=== PATIENT | female | born 1975 | race Caucasian/White ===

== ENCOUNTER → 2022-09-27 09:56 | Outpatient (BNVA) | payer OTHER, SELFPAY | PROVIDERS: PCP Physician Assistant; Visit Provider Physician Assistant Surgical ==

== ENCOUNTER → 2022-10-04 08:11 | Outpatient (BNVA) | payer OTHER, SELFPAY | PROVIDERS: PCP Physician Assistant; Visit Provider Surgery ==

== ENCOUNTER 2022-10-11 08:34 | Outpatient (REF) | payer OTHER, SELFPAY ==
--- NOTE | ~2022-10-11 | XR_ITS ---
EXAMINATION: XR CHEST CLINICAL INFORMATION: Bariatric service evaluation; E66.01. COMPARISON: None available. TECHNIQUE: 2 views of the chest were obtained. FINDINGS: The lungs are clear. The heart is normal in size. The vascularity is normal. The costophrenic sulci are well-defined. There are low lung volumes. No atelectasis. The hilar and mediastinal contours are unremarkable. No acute bony abnormality. XR/XR chest 2V IMPRESSION: Unremarkable examination.
--- NOTE | 2022-10-11 08:44 | ECG_ITS ---
Test Reason : e66.01 Blood Pressure : / mmHG Vent. Rate : 071 BPM Atrial Rate : 071 BPM P-R Int : 158 ms QRS Dur : 088 ms QT Int : 406 ms P-R-T Axes : 017 -47 028 degrees QTc Int : 441 ms Normal sinus rhythm Left axis deviation Cannot rule out Inferior infarct (masked by fascicular block?) , age undetermined Abnormal ECG No previous ECGs available Referred By: Lucas Rosario Electronically Signed By:NALDO STEEN
[2022-10-11 09:00] LABS: MANUAL DIFF FLAG NO
[2022-10-11 09:19] LABS: Basophils Percent Auto 0.3 % (0-2); Eosinophils Absolute Auto 0.1 X10*3/uL (0.0-0.4); Hemoglobin 16.3 g/dl (12.0-16.0); Imm Gran Abs Auto 0.03 X10*3/uL (0.00-0.03); Imm Gran Pct Auto 0.4 % (0.0-0.4); Lymphocytes Absolute Auto 1.7 X10*3/uL (1.2-4.9); Lymphocytes Percent Auto 24.5 % (20-40); Mean Corpuscular Volume 82.3 fL (80.0-98.0); Mean Platelet Volume 9.6 fL (9.4-12.3); Monocytes Absolute Auto 0.5 X10*3/uL (0.1-1.2); Monocytes Percent Auto 7.2 % (2-11); Neutrophils Absolute Auto 4.7 x10*3/uL (2.0-8.3); Neutrophils Percent Auto 65.6 % (45-73); Platelet Count 221 X10*3/uL (160-400); Red Blood Count 5.83 X10*6/uL (4.20-5.50); Red Cell Distribution Width 12.3 % (11.0-16.0); White Blood Count 7.1 X10*3/uL (4.8-10.8)
[2022-10-11 09:26] LABS: Estimated Average Glucose 243 mg/dL; Hemoglobin A1c % 10.1 %
[2022-10-11 09:54] LABS: Alanine Aminotransferase 16 U/L (0-31); Albumin Level 4.1 g/dL (3.5-5.0); Alkaline Phosphatase 95 U/L (39-117); Anion Gap 15 (12-20); Aspartate Amino Transferase 16 U/L (5-31); Bilirubin Total 0.8 mg/dL (0.0-1.0); Blood Urea Nitrogen 12 mg/dL (9-16); C Reactive Protein 2.23 mg/dL (< or = 0.50); Calcium 9.1 mg/dL (8.4-10.2); Carbon Dioxide 26 mmol/L (22-29); Chloride 106 mmol/L (96-108); Cholesterol 262 mg/dL; Estimated Glomerular Filt Rate > 60; Glucose Random 282 mg/dL (60-115); HDL Cholesterol 49 mg/dL; Iron 84 mcg/dL (30-160); LDL Cholesterol Calculated 190 mg/dl; Percent Iron Saturation 24 % (15-50); Potassium 4.1 mmol/L (3.3-5.1); Sodium 143 mmol/L (135-145); Total Iron Binding Capacity 346 mcg/dL (228-428); Total Protein 6.8 g/dL (6.5-8.0); Triglycerides 118 mg/dL; Unsaturated Iron Binding 262 ug/dL
[2022-10-11 10:26] LABS: Ferritin 40 ng/mL (10-250); Folate 13.4 ng/mL (> or = 4.0); Insulin 6 uU/mL (2-29); Vitamin B12 756 pg/mL (200-900); Vitamin D 25-OH Total 81.7 ng/mL (>30)
[2022-10-14 15:29] LABS: Calcium (PTHI) 8.9 mg/dL (8.6-10.2); PTHI 26 pg/mL (16-77)
[2022-10-16 05:18] LABS: Zinc 93 mcg/dL (60-130)
[2022-10-17 10:38] LABS: Vitamin A 40 mcg/dL (38-98)
[2022-10-17 16:33] LABS: Vitamin B1 12 nmol/L (8-30)
== END 2022-10-11 08:35 | disposition home or self-care (01) ==
LOC: HO.XRAY 08:34
PROVIDERS: PCP Physician Assistant; Visit Provider Surgery
DX: E66.01 Morbid (severe) obesity due to excess calories (principal); E11.9 Type 2 diabetes mellitus without complications; E78.5 Hyperlipidemia, unspecified; J45.909 Unspecified asthma, uncomplicated; Z79.4 Long term (current) use of insulin
CPT/HCPCS: 36415; 71046; 80053; 80061; 82306; 82607; 82728; 82746; 83036; 83525; 83540; 83970; 84425; 84443; 84590; 84630; 85025; 86140; 93005

== ENCOUNTER 2022-10-25 08:40 | Outpatient (REF) | payer OTHER, SELFPAY ==
[2022-10-27 11:28] LABS: H Pylori Breath Test Negative (Negative)
== END 2022-10-25 08:41 | disposition home or self-care (01) ==
LOC: HO.LNP 08:40
PROVIDERS: Surgery; PCP Physician Assistant; Visit Provider Physician Assistant Surgical
DX: E66.01 Morbid (severe) obesity due to excess calories (principal); E11.9 Type 2 diabetes mellitus without complications; E78.5 Hyperlipidemia, unspecified; J45.909 Unspecified asthma, uncomplicated; Z11.0 Encounter for screening for intestinal infectious diseases; Z79.4 Long term (current) use of insulin
CPT/HCPCS: 83013; 99211

== ENCOUNTER → 2022-10-28 08:00 | Outpatient (BNVA) | payer OTHER, SELFPAY | PROVIDERS: PCP Physician Assistant; Visit Provider Surgery | DX: K21.9 Gastro-esophageal reflux disease without esophagitis (principal); R11.0 Nausea ==

== ENCOUNTER → 2022-11-06 08:43 | Outpatient (BNVA) | payer OTHER, SELFPAY | PROVIDERS: PCP Physician Assistant; Visit Provider Dietitian, Registered | DX: E66.01 Morbid (severe) obesity due to excess calories (principal); E11.9 Type 2 diabetes mellitus without complications; Z79.4 Long term (current) use of insulin | CPT/HCPCS: 97802 ==

== ENCOUNTER → 2022-11-08 09:07 | Outpatient (REF) | payer OTHER, SELFPAY ==
--- NOTE | 2022-11-08 09:09 | CA_ITS ---
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 There is mildly increased left ventricular wall thickness. The visually estimated ejection fraction is between 65-70%. - Normal right ventricular cavity size and systolic function. Findings Procedure Information Contrast agent, definity, is being given per protocol without apparent complications. Left Ventricle Normal left ventricular size and systolic function. There is mildly increased left ventricular wall thickness. The visually estimated ejection fraction is between 65-70%. There is no evidence of regional wall motion abnormalities. Diastolic function is normal for age. Right Ventricle Normal right ventricular cavity size and systolic function. Atria The left atrium is normal in size. The right atrium is normal in size. Aortic Valve There is a normal trileaflet aortic valve. There is mild calcification of the aortic valve. There is no aortic valve stenosis. There is no aortic valve regurgitation. Mitral Valve Normal mitral valve structure and function. There is no mitral valve regurgitation. There is no mitral valve stenosis. Pulmonic Valve Normal pulmonic valve structure and function. There is no pulmonic valve regurgitation. Tricuspid Valve Normal tricuspid valve structure and function. There is no tricuspid valve regurgitation. Tricuspid regurgitation envelope is inadequate for calculation of right ventricular systolic pressure. Normal right atrial pressure. Great Vessels All visible segments of the aorta are normal in size. The visualized portions of the pulmonary artery and branches are normal. Venous The inferior vena cava is normal in size and collapses greater than 50% with inspiration. Pericardium/Pleural There is no evidence of pericardial effusion. Prior Study Comparison No prior study available for comparison. Measurements 2D Linear Measurements IVSd: 1.14 0.6-0.9/0.6-1.0 cm LVIDd: 4.96 3.9-5.3/4.2-5.9 cm LVIDd Index: 2.56 2.4-3.2/2.2-3.1 cm/m2 LVIDs: 3.82 2.0-3.6 cm LVPWd: 0.91 0.7-1.1 cm LA Diam: 3.80 2.7-3.8/3.0-4.0 cm LAIDs Index: 1.96 1.5-2.3 cm/m2 LV Mass: 230.89 67-162/88-224 g LV Mass Index: 119.01 43-95/49-115 g/m2 LVOT Diam: 2.00 3.0+(-)1.3 cm 2D Systolic Function EF 4C: 76.50 >55% EF 2C: 73.10 >55% EF BiP: 73.70 >55% Mitral Valve MV Pk E: 0.95 MV PK A: 0.72 MV Decel Time: 151.00 E/A: 1.30 E'Lateral: 6.20 E'Medial: 7.29 E/E' Med: 13.00 E/E' Lat: 15.30 PHT: 44.00 MVA PHT: 5.00 Decel Stutsman: 6.25 Aortic Valve AoV Pk Herber: 1.82 AoV Pk Grad: 13.00 RANJEET: 1.69 LVOT LVOT Pk Herber: 0.98 LVOT Mn Herber: 0.70 LVOT VTI: 0.19 LVOT Pk Grad: 4.00 LVOT Mn Grad: 2.00 LVOT Diam: 2.00 LVOT Area: 3.14 Diastolic Function MV Pk E: 0.95 MV Pk A: 0.72 E/A: 1.30 E'Medial: 7.29 E/E' Med: 13.00 E' Laterial: 6.20 E/E' Lat: 15.30 Right Ventricle TAPSE (mm): 17.10 TVS' Herber: 11.60 Tricuspid Valve RA Press: 3.00 Great Vessels Aorta Sinus of Valsalva: 2.70 2.0-3.5 cm Ao Asc: 3.00 2.1-3.4 cm Pulmonary Veins Pulm Vein S/D 1.50 Pulmonary Valve PV Pk Herber: 1.27 Peak PV Grad: 6.00 Updated in Other Vendor System with Status of Final Lázaro Polanco MD electronically signed on 11/10/2022 5:01:27 PM with status of Final
== END ==
LOC: HO.CARD 09:07
PROVIDERS: PCP Physician Assistant; Visit Provider Surgery
DX: R94.31 Abnormal electrocardiogram [ECG] [EKG] (principal)
CPT/HCPCS: 93306; Q9957

== ENCOUNTER → 2022-11-13 12:30 | Outpatient (BNVA) | payer OTHER, SELFPAY | PROVIDERS: PCP Physician Assistant; Visit Provider Counselor Mental Health ==

== ENCOUNTER → 2022-11-27 08:05 | Outpatient (BNVA) | payer OTHER, SELFPAY | PROVIDERS: PCP Physician Assistant; Visit Provider Surgery ==

== ENCOUNTER → 2022-11-28 09:23 | Outpatient (REF) | payer OTHER, SELFPAY ==
--- NOTE | ~2022-11-28 | NM_ITS ---
Exercise Myocardial perfusion study Indication: Abnormal stress test evaluate for myocardial ischemia Technique: The patient was brought in for an exercise perfusion study on 11/28/2022. Patient performed exercise as per Jeffery protocol and was injected 35 mCi of sestamibi was given intravenously one target HR was achieved. Images were obtained using the SPECT gamma camera interlaced with the gating device. Images were obtained in supine position. Resting perfusion study was performed on 12/04/2022. Patient was administered 35 mCi of sestamibi intravenously at rest. Images were then obtained in supine position. Images obtained with and without CT attenuation. Total DLP 130 mGy-cm. Images were processed with the software and compared side to side in short axis, horizontal long axis and vertical long axis views. Findings: The stress perfusion study showed non attenuated images show normal uptake of radiotracer in all segments of LV myocardium. Suggestion of left ventricle hypertrophy. Attenuation corrected images show minimally reduced uptake in the apical portion of the septum.. The gated study shows normal LV systolic function with calculated LVEF of 68%. LV cavity is normal in in size. The gated study shows normal systolic wall thickening and contraction of all segments. There is no transient ischemic dilation. Resting study shows nontender images show mildly reduced uptake in the basal and mid inferolateral wall of the LV myocardium. Remainder of the LV myocardium is normally perfused. Gating at rest reveals normal systolic wall motion with ejection fraction at 73%. The findings are consistent with likely normal myocardial perfusion. NM/NM cardiolite stress test Impression: 1. Normal myocardial perfusion 2. Gated LVEF is 68% 3. Transient ischemic dilatation not present Stress EKG is negative for ischemia
--- NOTE | 2022-11-28 09:26 | CA_ITS ---
Acquisition Time: 2022-11-28 09:35:21 Total Exercise Time: 00:06:06 Test Indications: Abnormal ECG Medications: SEE H Protocol: JOE Max HR: 157 BPM 91% of Pred: 172 BPM Max BP: 186/066 mmHG Max Work Load: 7.1 [address] Exercise stress terst exercise 6 min 6 sec of Joe protocol achieving 91% MPHR METS 7.1, wilth mild SOB, without chest discomfort, without arrhythmias, with normotensive response to exercise, without EKG changes. Nuclear images pending. Test reviewed with Dr. Polanco. Referred By: Richy Wild Overread By: HEMAL FERNANDEZ
== END ==
LOC: HO.CARD 09:23
PROVIDERS: PCP Physician Assistant; Visit Provider Physician Assistant Surgical
DX: R94.31 Abnormal electrocardiogram [ECG] [EKG] (principal)
CPT/HCPCS: 78452; 93017; A9500

== ENCOUNTER 2022-12-02 08:25 | Outpatient (REF) | payer OTHER, SELFPAY ==
--- NOTE | ~2022-12-02 | US_ITS ---
EXAMINATION: US COMPLETE ABDOMEN WITH LIVER ELASTOGRAPHY CLINICAL INFORMATION: Obesity COMPARISON: None available. TECHNIQUE: Real-time imaging of the abdominal viscera. Noninvasive ultrasound liver fibrosis assessment is performed using Lexie ElastPQ point quantification shear wave elastography (2D-SWE) with a C5-2 MHz transducer. Multiple elastography samples are obtained. FINDINGS: PANCREAS: Normal. ABDOMINAL AORTA: The proximal, middle, and distal aortic segments are normal in caliber. INFERIOR VENA CAVA: Visualized portions are normal. LIVER: Liver echotexture is slightly increased. The liver is normal in size and contour. There is a 3.1 x 2.4 x 3.8 cm hyperechoic lesion in the central liver, question representing a hemangioma. No other focal liver lesion. No biliary duct dilatation. The right lobe measures 16 cm in length. The left lobe measures 11 cm in length. Portal flow is normal/hepatopedal Shear wave liver elastography median stiffness is 2 m/s (reference: normal median stiffness is 1.3 m/s or less). IQR/median stiffness to assess sampling precision is 0.1 (reference: good quality data set is IQR/median stiffness of 0.15 or less). GALLBLADDER: Normal. The gallbladder is physiologically distended without evidence of stones, sludge, polyps, wall thickening or pericholecystic fluid. COMMON BILE DUCT: Normal in caliber measuring 0.5 cm in diameter. RIGHT KIDNEY: May be mild fullness of the renal pelvis. No hydronephrosis. No renal calculi or focal parenchymal lesions. The kidney measures 12.5 cm in maximum dimension. LEFT KIDNEY: Normal. No hydronephrosis. No renal calculi or focal parenchymal lesions. The kidney measures 12 cm in maximum dimension. SPLEEN: Normal. The spleen measures 11 cm in maximum dimension. FREE FLUID: None. US/US abdomen comp w elastography IMPRESSION: 1. Impression: Echogenic liver probably representing fatty infiltration. 3.1 x 2.4 x 3.8 cm hyperechoic lesion in the central right lobe of the liver. This may represent a hemangioma. Follow-up liver MRI commended. 2. Liver elastography: Adequate liver sampling. Increased liver stiffness suggestive of compensated advanced chronic liver disease but need further test for confirmation. REFERENCE: Society of Radiologists in Ultrasound Liver Stiffness Thresholds (2020): LIVER STIFFNESS THRESHOLDS: *Liver Stiffness equal or less than 1.3 m/s: High probability of being normal. *Liver Stiffness less than 1.7 m/s: In the absence of other known clinical signs, rules out compensated advanced chronic liver disease. *Liver Stiffness 1.7-2.1 m/s: Suggestive of compensated advanced chronic liver disease but need further test for confirmation. *Liver Stiffness over 2.1 m/s: Rules in compensated advanced chronic liver disease. *Liver Stiffness over 2.4 m/s: Suggestive of clinically significant portal hypertension. QUALITY OF DATA SET: *IQR/Median value equal or less than 0.15 implies a quality data set. *IQR/Median value over 0.15 implies a poor quality data set. SIGNIFICANT CHANGE FROM PRIOR EXAM: Significant change if liver stiffness measurement is 10% or greater from prior exam. OTHER CONSIDERATIONS: The stage of liver fibrosis may be overestimated in the setting of acute hepatitis, liver inflammation, elevated liver function tests, hepatic vascular congestion, obstructive cholestasis, non-fasting state, and infiltrative diseases such as amyloidosis and lymphoma. In some patients with NAFLD, the liver stiffness thresholds for compensated advanced chronic liver disease may be lower. In causes other than viral hepatitis and NAFLD, liver stiffness thresholds are not well established.
--- NOTE | ~2022-12-02 | FL_ITS ---
EXAMINATION: XR FLUOROSCOPY UPPER GI WITH AIR CLINICAL INFORMATION: Obesity COMPARISON: None available. TECHNIQUE: Upper GI was performed using thin and thick barium and effervescent granules. FINDINGS: Esophageal motility is normal. No reflux or hernia is seen. The stomach and duodenum are normal. No fold thickening, mass, ulcer or stricture is seen. FLUOROSCOPY TIME: 0.4 DOSE AREA PRODUCT: 5.3 jimenez per centimeter squared. Total dose 21 mgy. 21 saved fluoroscopic images. FL/FL upper GI w air IMPRESSION: Unremarkable examination.
== END 2022-12-02 08:26 | disposition home or self-care (01) ==
LOC: HO.US 08:25
PROVIDERS: PCP Physician Assistant; Visit Provider Surgery
DX: E11.9 Type 2 diabetes mellitus without complications (principal); E66.01 Morbid (severe) obesity due to excess calories; E78.5 Hyperlipidemia, unspecified; J45.909 Unspecified asthma, uncomplicated; Z79.4 Long term (current) use of insulin
CPT/HCPCS: 74246; 76705; 76981

== ENCOUNTER → 2022-12-03 10:00 | Outpatient (BNVA) | payer OTHER, SELFPAY | PROVIDERS: PCP Physician Assistant; Visit Provider Counselor Mental Health ==

== ENCOUNTER → 2022-12-17 10:30 | Outpatient (BNVA) | payer OTHER, SELFPAY | PROVIDERS: PCP Physician Assistant; Visit Provider Counselor Mental Health ==

== ENCOUNTER → 2022-12-20 09:02 | Outpatient (BNVA) | payer OTHER, SELFPAY | PROVIDERS: Visit Provider Dietitian, Registered | DX: E66.01 Morbid (severe) obesity due to excess calories (principal); R68.81 Early satiety; E28.2 Polycystic ovarian syndrome; L40.50 Arthropathic psoriasis, unspecified; Z68.39 Body mass index [BMI] 39.0-39.9, adult; Z90.49 Acquired absence of other specified parts of digestive tract | CPT/HCPCS: 97803 ==

== ENCOUNTER 2023-01-07 11:00 | Outpatient (AMB) | payer OTHER, SELFPAY ==
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
== END 2023-01-14 16:23 | disposition home or self-care (01) ==
LOC: HO.HBST 11:49
PROVIDERS: PCP Physician Assistant; Visit Provider Counselor Mental Health
DX: F33.0 Major depressive disorder, recurrent, mild (principal); F43.10 Post-traumatic stress disorder, unspecified; E66.01 Morbid (severe) obesity due to excess calories
CPT/HCPCS: 90832

== ENCOUNTER → 2023-01-07 11:00 | Outpatient (BNVA) | payer OTHER, SELFPAY | PROVIDERS: PCP Physician Assistant; Visit Provider Counselor Mental Health ==

== ENCOUNTER 2023-01-28 13:28 | Outpatient (AMB) | payer OTHER, SELFPAY ==
[2023-01-28 18:02] VITALS: BMI 38.7
--- NOTE | 2023-01-28 18:02 | MHC.OFFVISWM ---
Intake VS Expanded 01/28/23 18:02 Height 5 ft 1 in Weight 205 lb BMI 38.7 Body Fat 105.5 Body Fat Percentage 51.5 Free Fat Mass 99.4 Visceral Mass 21 Water Mass 68.2 BMR 1,338 Intake Visit Reasons: TV Pre Op LSG 02/05/2023 Allergies seafood Allergy (Mild, Verified 01/28/23 18:08) Hives ERYTHROMYCIN Allergy (Mild, Uncoded 01/28/23 18:08) Anaphylaxis MORPHINE Allergy (Mild, Uncoded 01/28/23 18:08) EMESIS ANTIBIOTICS Allergy (Unknown, Uncoded 01/28/23 18:08) Unknown QUINOLONE ANTIBIOTICS Allergy (Unknown, Uncoded 01/28/23 18:08) Unknown Medication List - Last Reconciled 01/28/23 by Lucas Rosario MD acyclovir 200 mg PO TID albuterol sulfate 0.63 mg inhalation Q4-6H PRN albuterol sulfate 90 mcg/actuation 2 puffs inhalation Q6H PRN blood pressure monitor As directed blood-glucose meter,continuous (Dex[employer] G6 [employer]) As directed blood-glucose sensor (Dexcom G6 Sensor device) As directed blood-glucose transmitter (Dexcom G6 Transmitter device) As directed [FISH OIL PO] insulin detemir U-100 (Levemir FlexPen) 40 units subcut BEDTIME insulin lispro (Humalog KwikPen (U-100) Insulin) 1 sliding scale dose subcut USEASDIRECTD meloxicam 15 mg PO DAILY nitrofurantoin monohyd/m-cryst 100 mg (Macrobid) 100 mg PO ONCE PRN nystatin 1 appl topical QID PRN omeprazole 40 mg PO DAILY ondansetron 4 mg PO Q6H PRN ondansetron 4 mg PO Q12H oxycodone 5 mg PO Q8H PRN pantoprazole 40 mg PO DAILY phentermine 37.5 mg PO DAILY polyethylene glycol 3350 (Miralax) 17 grams PO DAILY semaglutide 0.25 mg subcut QWEEK sucralfate 10 mL PO BID HPI TV Pre Op LSG 02/05/2023 HPI Details Start time: 3.40pm, End time: 4pm I spent 15 minutes speaking with the patient on the phone plus an additional 5 minutes reviewing and updating records for a total of 20 minutes HPI Comments History of Present Illness Details Overall weight loss: 14.8lbs, or 6.73% TBWL Is doing 2 Optimum Nutrition protein shakes with 1/2 scoop each in 8oz almond milk and one meal (10 forks of meat and 10 forks of salad or vegetables) [facility] Medical History (Updated 01/28/23 @ 12:51 by Lucas Rosario MD) Asthma Endometriosis Hyperlipidemia Morbid obesity PCOS (polycystic ovarian syndrome) Psoriatic arthritis Shingles UTI (urinary tract infection) Surgical History (Updated 09/27/22 @ 10:18 by ISAÍAS Cowan) Hx of cholecystectomy Hx of colonoscopy Hx of cystoscopy Hx of unilateral oophorectomy Hx of unilateral salpingectomy Hx of wisdom tooth extraction Family History (Updated 09/27/22 @ 10:20 by ISAÍAS Cowan) Mother No problems noted. Father Hypertension Sister No problems noted. Brother Hypertension Brother No problems noted. Social History (Updated 09/27/22 @ 10:17 by ISAÍAS Cowan) Alcohol intake: never Patient Tobacco Use Status: Never used Tobacco Assessment & Plan Assessment & Plan (1) Obesity: Code(s): E66.9 - Obesity, unspecified Plan: 1. Plan for lap sleeve gastrectomy including upper GI endoscopy. All tests has been completed and reviewed and the patient is cleared for the surgery. If diaphragmatic or ventral hernias are present at time of surgery, these will be repaired laparoscopically as well. Risks and complications were discussed in detail including possible conversion to an open procedure, anastomotic leak, bleeding requiring transfusion, small bowel obstruction, , DVT and pulmonary embolism, cardiac, or pulmonary complications, as skilled nursing complications such as anastomotic ulcer, insufficient weight loss and vitamin deficiencies. I emphasized the importance of close follow-up, adherence to instructions and good communication. So far she has proven to be an excellent communicator and very compliant with all our directions accomplishing a great weight loss. I believe that she is an excellent candidate and she is ready. 2. Preop prescriptions were provided and explained the purpose of each one. Need to be purchased preop. Start Pantoprazole now as you get it from the pharmacy, 1 pill per day. Sucralfate and Zofran are for after surgery as needed. 3. Bowel prep: please do 7 packets of Miralax mixing each one with a an 8oz glass of water, crystal light, gatorade zero, or propel on 02/03/23 and the same amount on 02/04/23. Continue the protein shakes during the bowel prep. 4. Needs to purchase 1oz medicine cups . 5. Needs to purchase Children's liquid Tylenol for postop pain control. 6. She needs to stop as of today 01/28/23 the Meloxicam, fish oil and Ozempic. Avoid aspirin, motrin, Advil, Aleve, Ibuprofen, Naproxyn. Tylenol is OK. 7. She needs to purchase the Celebrate 4:1 protein shakes from the hospital's gift shop. 8. Will do basic preop blood work-up any day between Friday01/29/23 and Friday01/31/23 fasting for 12 hours and is scheduled to see the Anesthesiologist prior to the day of surgery. 9. Importance of adherence to postop folllow-up and recommendations was underscored and she understands that. 10. Stop food and bars as of tomorrow 01/29/23 and continue with one Optimum Nutrition protein shake (1/2 scoop in 8oz almond milk) at 9am-11am, and TWO more Optimum Nutrition protein shakes with ONE scoop EACH in 8oz of almond milk at 3pm-5pm and 7pm-9pm 11. No soups, broths or V8 12. The patient's medical history has been reviewed and they are considered low risk for post op DVT and therefore DVT prophylaxis is not considered necessary. Travel after surgery was reviewed. The patient has not disclosed any travel plans during the first 30 days after surgery and they have been advised that within the first 30 days after surgery any bus, plane, train or car travel over 2 hours in duration is contraindicated due to the possibility of developing blood clots from immobility. Any travel, needs to include periods of ambulation of 10 minutes in duration every 2 hours. Patient was instructed to discuss any plans for travel during this period with their bariatric surgeon. 13. Please take at the day of surgery the following medications: NONE 14. Stop any control pills and don't use them for one month after surgery 15. Absolutely no smoking or vaping, or marijuana until the surgery and for at least the first 4 weeks. Only nicotine patches are allowed. 16. Send me weight measurements on Friday and again next Friday on the day of surgery before you go to the hospital. 17. Avoid any steroids by mouth for any reason. Let me know if someone prescribes them to you (2) BMI 39.0-39.9,adult: Code(s): Z68.39 - Body mass index [BMI] 39.0-39.9, adult (3) GERD (gastroesophageal reflux disease): Code(s): K21.9 - Gastro-esophageal reflux disease without esophagitis (4) PCOS (polycystic ovarian syndrome): Code(s): E28.2 - Polycystic ovarian syndrome (5) Hyperlipidemia: Code(s): E78.5 - Hyperlipidemia, unspecified (6) Insulin dependent type 2 diabetes mellitus: Code(s): E11.9 - Type 2 diabetes mellitus without complications; Z79.4 - longterm (current) use of insulin (7) Asthma: Code(s): J45.909 - Unspecified asthma, uncomplicated Orders: Orders Type and Screen Today E11.9 - Type 2 diabetes mellitus without complications, E66.9 - Obesity, unspecified, E78.5 - Hyperlipidemia, unspecified, I10 - Essential (primary) hypertension, K21.9 - Gastro-esophageal reflux disease without esophagitis, Z68.39 - Body mass index [BMI] 39.0-39.9, adult, Z79.4 - longterm (current) use of insulin Comprehensive Met. Panel Today E11.9 - Type 2 diabetes mellitus without complications, E66.9 - Obesity, unspecified, E78.5 - Hyperlipidemia, unspecified, I10 - Essential (primary) hypertension, K21.9 - Gastro-esophageal reflux disease without esophagitis, Z68.39 - Body mass index [BMI] 39.0-39.9, adult, Z79.4 - longterm (current) use of insulin C Reactive Protein Today E11.9 - Type 2 diabetes mellitus without complications, E66.9 - Obesity, unspecified, E78.5 - Hyperlipidemia, unspecified, I10 - Essential (primary) hypertension, K21.9 - Gastro-esophageal reflux disease without esophagitis, Z68.39 - Body mass index [BMI] 39.0-39.9, adult, Z79.4 - [employer] (current) use of insulin Hemoglobin A1c Today E11.9 - Type 2 diabetes mellitus without complications, E66.9 - Obesity, unspecified, E78.5 - Hyperlipidemia, unspecified, I10 - Essential (primary) hypertension, K21.9 - Gastro-esophageal reflux disease without esophagitis, Z68.39 - Body mass index [BMI] 39.0-39.9, adult, Z79.4 - longterm (current) use of insulin Insulin Today E11.9 - Type 2 diabetes mellitus without complications, E66.9 - Obesity, unspecified, E78.5 - Hyperlipidemia, unspecified, I10 - Essential (primary) hypertension, K21.9 - Gastro-esophageal reflux disease without esophagitis, Z68.39 - Body mass index [BMI] 39.0-39.9, adult, Z79.4 - [employer] (current) use of insulin Lipid Panel Today E11.9 - Type 2 diabetes mellitus without complications, E66.9 - Obesity, unspecified, E78.5 - Hyperlipidemia, unspecified, I10 - Essential (primary) hypertension, K21.9 - Gastro-esophageal reflux disease without esophagitis, Z68.39 - Body mass index [BMI] 39.0-39.9, adult, Z79.4 - longterm (current) use of insulin TSH reflex Free T4 Today E11.9 - Type 2 diabetes mellitus without complications, E66.9 - Obesity, unspecified, E78.5 - Hyperlipidemia, unspecified, I10 - Essential (primary) hypertension, K21.9 - Gastro-esophageal reflux disease without esophagitis, Z68.39 - Body mass index [BMI] 39.0-39.9, adult, Z79.4 - longterm (current) use of insulin Prothrombin Time INR Today E11.9 - Type 2 diabetes mellitus without complications, E66.9 - Obesity, unspecified, E78.5 - Hyperlipidemia, unspecified, I10 - Essential (primary) hypertension, K21.9 - Gastro-esophageal reflux disease without esophagitis, Z68.39 - Body mass index [BMI] 39.0-39.9, adult, Z79.4 - [employer] (current) use of insulin Partial Thromboplastin Time Today E11.9 - Type 2 diabetes mellitus without complications, E66.9 - Obesity, unspecified, E78.5 - Hyperlipidemia, unspecified, I10 - Essential (primary) hypertension, K21.9 - Gastro-esophageal reflux disease without esophagitis, Z68.39 - Body mass index [BMI] 39.0-39.9, adult, Z79.4 - [employer] (current) use of insulin Complete Blood Count Auto Diff Today E11.9 - Type 2 diabetes mellitus without complications, E66.9 - Obesity, unspecified, E78.5 - Hyperlipidemia, unspecified, I10 - Essential (primary) hypertension, K21.9 - Gastro-esophageal reflux disease without esophagitis, Z68.39 - Body mass index [BMI] 39.0-39.9, adult, Z79.4 - [employer] (current) use of insulin Medications: New pantoprazole 40 mg PO DAILY 90 tabs 2RF K21.9 - Gastro-esophageal reflux disease without esophagitis sucralfate 10 mL PO BID 400 mL 2RF K21.9 - Gastro-esophageal reflux disease without esophagitis ondansetron 4 mg PO Q12H 20 tabs 0RF nausea and vomiting R11.0 - Nausea polyethylene glycol 3350 (Miralax) Mix each packet with 8oz of water or Gatorade zero and do 7 packets on 02/03/23 and another 7 packets on 02/04/23 17 grams PO DAILY 14 ea 0RF Z01.818 - Encounter for other preprocedural examination Telehealth Telehealth Location of provider rendering services: practice address Location of patient: address on file Patient Identification confirmed using: Name, : Yes Telehealth method: voice only Patient verbally consented to treatment: Yes Patient verbally consented to billing insurance company: Yes Patient informed of any privacy concerns related to visit: Yes Minutes spent on Phone/Video with Pt.: 20 Coding Level of Care Code Tele Est Pt Level 3 (10877) Diagnoses Obesity E66.9 BMI 39.0-39.9,adult Z68.39 GERD (gastroesophageal reflux disease) K21.9 PCOS (polycystic ovarian syndrome) E28.2 Hyperlipidemia E78.5 Insulin dependent type 2 diabetes mellitus E11.9; Z79.4 Asthma J45.909 Time Spent (min) 20
== END 2023-01-28 18:22 | disposition home or self-care (01) ==
LOC: HO.HBS 13:28
PROVIDERS: PCP Physician Assistant; Visit Provider Surgery
DX: E66.9 Obesity, unspecified (principal); Z68.39 Body mass index [BMI] 39.0-39.9, adult; K21.9 Gastro-esophageal reflux disease without esophagitis; E28.2 Polycystic ovarian syndrome; E78.5 Hyperlipidemia, unspecified; E11.9 Type 2 diabetes mellitus without complications; Z79.4 Long term (current) use of insulin; J45.909 Unspecified asthma, uncomplicated
CPT/HCPCS: 99213

== ENCOUNTER → 2023-01-28 13:28 | Outpatient (BNVA) | payer OTHER, SELFPAY | PROVIDERS: PCP Physician Assistant; Visit Provider Surgery | DX: E66.9 Obesity, unspecified (principal); Z68.39 Body mass index [BMI] 39.0-39.9, adult; K21.9 Gastro-esophageal reflux disease without esophagitis; I10 Essential (primary) hypertension; E78.5 Hyperlipidemia, unspecified; E11.9 Type 2 diabetes mellitus without complications; Z79.4 Long term (current) use of insulin; R11.0 Nausea; Z01.818 Encounter for other preprocedural examination ==

== ENCOUNTER 2023-01-31 09:00 | Outpatient (REF) | payer OTHER, SELFPAY ==
[2023-01-31 09:16] LABS: MANUAL DIFF FLAG NO
[2023-01-31 09:34] LABS: Basophils Percent Auto 0.3 % (0-2); Eosinophils Absolute Auto 0.2 X10*3/uL (0.0-0.4); Eosinophils Percent Auto 3.4 % (0-4); Hematocrit 44.9 % (37.0-47.0); Hemoglobin 15.5 g/dl (12.0-16.0); Imm Gran Abs Auto 0.02 X10*3/uL (0.00-0.03); Imm Gran Pct Auto 0.3 % (0.0-0.4); Lymphocytes Absolute Auto 1.8 X10*3/uL (1.2-4.9); Mean Corpuscular HGB Conc 34.5 g/dl (31.0-35.0); Mean Corpuscular Hemoglobin 28.6 pg (27.0-33.0); Mean Corpuscular Volume 82.8 fL (80.0-98.0); Mean Platelet Volume 9.5 fL (9.4-12.3); Monocytes Absolute Auto 0.5 X10*3/uL (0.1-1.2); Monocytes Percent Auto 7.4 % (2-11); Neutrophils Absolute Auto 4.5 x10*3/uL (2.0-8.3); Neutrophils Percent Auto 63.6 % (45-73); Platelet Count 213 X10*3/uL (160-400); Red Blood Count 5.42 X10*6/uL (4.20-5.50); Red Cell Distribution Width 12.3 % (11.0-16.0); White Blood Count 7.1 X10*3/uL (4.8-10.8)
[2023-01-31 09:38] LABS: Prothrombin Time 11.9 SEC (11.1-13.3)
[2023-01-31 10:14] LABS: Alanine Aminotransferase 16 U/L (0-31); Alkaline Phosphatase 69 U/L (39-117); Anion Gap 15 (12-20); Aspartate Amino Transferase 15 U/L (5-31); Bilirubin Total 0.8 mg/dL (0.0-1.0); Blood Urea Nitrogen 11 mg/dL (9-16); C Reactive Protein 1.49 mg/dL (< or = 0.50); Calcium 9.5 mg/dL (8.4-10.2); Carbon Dioxide 27 mmol/L (22-29); Chloride 106 mmol/L (96-108); Cholesterol 215 mg/dL; Estimated Glomerular Filt Rate > 60; Glucose Random 103 mg/dL (60-115); HDL Cholesterol 40 mg/dL; LDL Cholesterol Calculated 148 mg/dl; Sodium 144 mmol/L (135-145); Triglycerides 135 mg/dL
[2023-01-31 10:27] LABS: Estimated Average Glucose 154 mg/dL
[2023-01-31 10:28] LABS: Insulin 239 uU/mL (2-29); TSH reflex Free T4 2.34 uIU/mL (0.32-4.0)
== END 2023-01-31 09:01 | disposition home or self-care (01) ==
LOC: HO.LAB 09:00
PROVIDERS: Visit Provider Surgery
DX: E11.9 Type 2 diabetes mellitus without complications (principal); E78.5 Hyperlipidemia, unspecified; I10 Essential (primary) hypertension; K21.9 Gastro-esophageal reflux disease without esophagitis; E66.9 Obesity, unspecified; Z68.39 Body mass index [BMI] 39.0-39.9, adult; Z79.4 Long term (current) use of insulin
CPT/HCPCS: 36415; 80053; 80061; 83036; 83525; 84443; 85025; 85610; 85730; 86140

== ENCOUNTER → 2023-02-05 12:50 | Outpatient (BNV) | payer OTHER, SELFPAY | PROVIDERS: Admitting Provider Surgery; PCP Physician Assistant; Visit Provider Surgery | DX: E66.01 Morbid (severe) obesity due to excess calories (principal); Z68.39 Body mass index [BMI] 39.0-39.9, adult | CPT/HCPCS: 43659; 43775 ==

== ENCOUNTER 2023-02-05 15:18 | Inpatient (IN) | payer OTHER, SELFPAY ==
[2023-01-30 16:48] VITALS: BMI 38.5
--- NOTE | 2023-01-31 23:48 | MHC.SHP ---
Pre-Procedural Eval Section A Date of Service: 01/31/23 The patient is an INPATIENT: Yes The History & Physical has been completed within 30 days and I have reviewed it.: Yes Section B Chief Complaint: Morbid (severe) obesity due to excess calories Relevant Family History (Specify if Yes): No Relevant Social History: None Present Medications: None Medical History: No relevant PMH History of Previous Operations: No relevant previous surgery Allergies: Allergies Allergy/AdvReac Type Severity Reaction Status Date / Time clavulanic acid Allergy Severe felt like Verified 01/30/23 16:54 [From Augmentin] I was having a heart attack lobster Allergy Severe Anaphylaxis Verified 01/30/23 16:32 shrimp Allergy Severe Anaphylaxis Verified 01/30/23 16:32 ERYTHROMYCIN Allergy Severe Anaphylaxis Uncoded 01/30/23 16:32 MORPHINE Allergy Severe Hives, Uncoded 01/30/23 16:53 rash, diaphoresis, N/V QUINOLONE ANTIBIOTICS Allergy Severe Hives, Uncoded 01/30/23 16:32 rash, N/V ANTIBIOTICS Allergy Unknown Unknown Uncoded 01/28/23 18:08 Review of Systems Sugical H&P ROS: Negative: Constitution, Cardiovascular, Respiratory, Neurological, Psychiatric, Hem-Onc, Allergic/Immunologic, Gastrointestinal, Genitourinary, Musculoskeletal, Integumentary, Endocrine and Eyes/Ears/Nose/Throat Exam Surgical H&P Exam: Normal: HEENT, Normal: Heart, Normal: Lungs, Normal: Extremities, Normal: Abdomen, Normal: Skin and Normal: Neurological Plan Diagnosis/Plan: Unchanged I have reviewed the history and physical and performed a pertinent physical examination on my patient. No changes have occurred unless specified. Time Spent With Patient Time: Total time managing care of this patient today ____ minutes.
--- NOTE | 2023-02-04 09:20 | P.CONAN_ITS ---
Documented by User: Holly Beal NP 02/04/23 09:23 HPI - Anesthesia Eval Consult details Narrative: 47yo F for Gastrectomy Sleeve EGD, possible diaphragmatic hernia, possible ventral hernia, possible open PMFSH Active Problems Active Problems: All Active Problems (Updated 01/30/23 @ 16:53 by Noemi Martins RN) Insulin dependent type 2 diabetes mellitus (Acute) Abnormal EKG (Acute) GERD (gastroesophageal reflux disease) (Acute) Nausea (Acute) Major depressive disorder, recurrent, mild (Acute) Complex posttraumatic stress disorder (Acute) Hypertension (Acute) Obesity (Acute) BMI 39.0-39.9,adult (Acute) Endometriosis (Acute) PCOS (polycystic ovarian syndrome) (Acute) Shingles (Acute) Asthma (Acute) Psoriatic arthritis (Acute) Hyperlipidemia (Acute) Morbid obesity (Acute) Past Medical History Medical History (Updated 02/05/23 @ 12:47 by Lucas Rosario MD) Asthma Diabetes Endometriosis Hyperlipidemia Morbid obesity PCOS (polycystic ovarian syndrome) PONV (postoperative nausea and vomiting) Psoriatic arthritis Shingles UTI (urinary tract infection) Family History Family History (Updated 09/27/22 @ 10:20 by ISAÍAS Cowan) Mother No problems noted. Father Hypertension Sister No problems noted. Brother Hypertension Brother No problems noted. 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) Do you presently have visiting nurse or other home services: No Alcohol intake: never Patient Tobacco Use Status: Former Tobacco user Quit Date: 2005 Tobacco use type: Cigarette Use of substances other than those prescribed or required for medical reasons: Yes Substance Use Type: Marijuana Substance Use Type Other:: marijuana gummies at bedtime Substance Use Frequency: Daily Last Used Substance: Days (ago) Last Used Substance Other:: gummy for sleep Currently Displaying Signs/Symptoms of Drug Intoxication Withdrawal: No Any prior treatment program specific to substance use: No Have you been hit, kicked, punched, or otherwise hurt by someone within the past year? If so, by whom?: No Do you feel safe in your current relationship?: Yes Is there a partner from a previous relationship who is making you feel unsafe now?: No Are you made to feel afraid or neglected: No Are you DNR?: No Advance Directives: No Advance Directives Information Provided: Yes Advance Directives on File: No Do you have thoughts of harming others: None Do you have a plan to hurt others: No Plan Recently lost weight without trying: No How much weight loss: Not applicable Eating poorly because of decreased appetite: No Nutrition screen score: 0 Nutrition Risks: No Nutritional Risk Patient : No FDLMP: unknown : No Poor oral hygiene: No Meds Allergies Allergy/AdvReac Type Severity Reaction Status Date / Time clavulanic acid Allergy Severe felt like Verified 01/30/23 16:54 [From Augmentin] I was having a heart attack lobster Allergy Severe Anaphylaxis Verified 01/30/23 16:32 shrimp Allergy Severe Anaphylaxis Verified 01/30/23 16:32 vancomycin Allergy Hives Verified 02/05/23 15:16 ERYTHROMYCIN Allergy Severe Anaphylaxis Uncoded 01/30/23 16:32 MORPHINE Allergy Severe Hives, Uncoded 01/30/23 16:53 rash, diaphoresis, N/V QUINOLONE ANTIBIOTICS Allergy Severe Hives, Uncoded 01/30/23 16:32 rash, N/V ANTIBIOTICS Allergy Unknown Unknown Uncoded 01/28/23 18:08 Home Medications Medication Instructions Recorded Confirmed Last Taken Type FISH OIL 1 dose PO DAILY 09/27/22 02/05/23 01/29/23 History albuterol sulfate 0.63 mg/3 mL 0.63 mg inhalation Q4-6H PRN 09/27/22 02/05/23 Unknown History solution for nebulization Shortness Of Breath Or Wheezing albuterol sulfate 90 mcg/actuation 2 puff inhalation Q6H PRN 09/27/22 01/30/23 Unknown History aerosol inhaler Shortness Of Breath Or Wheezing blood-glucose meter,continuous 09/27/22 01/28/23 Unknown History ([place] G6 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) blood-glucose sensor (Dexcom G6 09/27/22 01/28/23 Unknown History Sensor device) blood-glucose transmitter (Dexcom 09/27/22 01/28/23 Unknown History G6 Transmitter device) insulin lispro 100 unit/mL 1 sliding scale dose subcut 09/27/22 02/05/23 02/02/23 History subcutaneous pen (Humalog KwikPen USEASDIRECTD (U-100) Insulin) meloxicam 15 mg tablet 15 mg PO DAILY 09/27/22 02/05/23 01/29/23 History nitrofurantoin 100 mg PO ONCE 09/27/22 02/05/23 01/05/23 History monohydrate/macrocrystals 100 mg capsule (Macrobid) nystatin 100,000 unit/gram topical 1 appl topical QID PRN Rash 09/27/22 02/05/23 Unknown History powder oxycodone 5 mg capsule 2.5 mg PO Q8H PRN Pain 09/27/22 01/30/23 Unknown History acyclovir 200 mg capsule 200 mg PO TID 10/04/22 02/05/23 02/04/23 History insulin detemir U-100 100 unit/mL 38 unit subcut BID 10/04/22 02/05/23 02/04/23 History (3 mL) subcutaneous pen (Levemir 34 units FlexPen) semaglutide 0.25 mg or 0.5 mg (2 0.25 mg subcut QWEEK 10/04/22 01/30/23 01/29/23 History mg/3 mL) subcutaneous pen injector valacyclovir 1 gram tablet 1,000 mg PO DAILY 01/30/23 01/30/23 02/04/23 History Exam Exam Date and Time: February 04, 2023 0920 Height,Weight and Vital Signs: Height 5 ft 1 in Weight 92.533 kg Pertinent Lab Results Pertinent Lab Results: Laboratory Tests 01/31/23 09:06 Blood Type B Positive Antibody Screen NEGATIVE Laboratory Tests 01/31/23 01/31/23 09:15 09:15 WBC 7.1 Hgb 15.5 Hct 44.9 Plt Count 213 Sodium 144 Potassium 4.0 Chloride 106 Carbon Dioxide 27 BUN 11 Creatinine 0.66 Narrative Narrative: EKG 09/2022 Vent. Rate : 071 BPM ? ? Atrial Rate : 071 BPM ?? P-R Int : 158 ms? QRS Dur : 088 ms ? ? QT Int : 406 ms ? ? ? P-R-T Axes : 017 -47 028 degrees ?? QTc Int : 441 ms ? Normal sinus rhythm Left axis deviation Cannot rule out Inferior infarct (masked by fascicular block?) , age undetermined Abnormal ECG No previous ECGs available ECHO 10/2022 Conclusions: - Normal left ventricular size and systolic function. There is ? mildly increased left ventricular wall thickness.? The visually? estimated ejection fraction is between 65-70%. ? - Normal right ventricular cavity size and systolic function.?? NM cardiolite stress test 11/2022 Impression: ? 1.? Normal myocardial perfusion 2.? Gated LVEF is 68% 3. Transient ischemic dilatation not present ? 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 no CP , no SOB. Functional status greater than 4 METS PMFSH Past Medical History Medical History (Updated 02/05/23 @ 12:47 by Lucas Rosario MD) Asthma Diabetes Endometriosis Hyperlipidemia Morbid obesity PCOS (polycystic ovarian syndrome) PONV (postoperative nausea and vomiting) Psoriatic arthritis Shingles UTI (urinary tract infection) Functional capacity: independent ambulation Family History Family History (Updated 09/27/22 @ 10:20 by ISAÍAS Cowan) Mother No problems noted. Father Hypertension Sister No problems noted. Brother Hypertension Brother No problems noted. 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) Do you presently have visiting nurse or other home services: No Alcohol intake: never Patient Tobacco Use Status: Former Tobacco user Quit Date: 2005 Tobacco use type: Cigarette Use of substances other than those prescribed or required for medical reasons: Yes Substance Use Type: Marijuana Substance Use Type Other:: marijuana gummies at bedtime Substance Use Frequency: Daily Last Used Substance: Days (ago) Last Used Substance Other:: gummy for sleep Currently Displaying Signs/Symptoms of Drug Intoxication Withdrawal: No Any prior treatment program specific to substance use: No Have you been hit, kicked, punched, or otherwise hurt by someone within the past year? If so, by whom?: No Do you feel safe in your current relationship?: Yes Is there a partner from a previous relationship who is making you feel unsafe now?: No Are you made to feel afraid or neglected: No Are you DNR?: No Advance Directives: No Advance Directives Information Provided: Yes Advance Directives on File: No Do you have thoughts of harming others: None Do you have a plan to hurt others: No Plan Recently lost weight without trying: No How much weight loss: Not applicable Eating poorly because of decreased appetite: No Nutrition screen score: 0 Nutrition Risks: No Nutritional Risk Patient : No FDLMP: unknown : No Poor oral hygiene: No Meds Allergies Allergy/AdvReac Type Severity Reaction Status Date / Time clavulanic acid Allergy Severe felt like Verified 01/30/23 16:54 [From Augmentin] I was having a heart attack lobster Allergy Severe Anaphylaxis Verified 01/30/23 16:32 shrimp Allergy Severe Anaphylaxis Verified 01/30/23 16:32 vancomycin Allergy Hives Verified 02/05/23 15:16 ERYTHROMYCIN Allergy Severe Anaphylaxis Uncoded 01/30/23 16:32 MORPHINE Allergy Severe Hives, Uncoded 01/30/23 16:53 rash, diaphoresis, N/V QUINOLONE ANTIBIOTICS Allergy Severe Hives, Uncoded 01/30/23 16:32 rash, N/V ANTIBIOTICS Allergy Unknown Unknown Uncoded 01/28/23 18:08 Home Medications Medication Instructions Recorded Confirmed Last Taken Type FISH OIL 1 dose PO DAILY 09/27/22 02/05/23 01/29/23 History albuterol sulfate 0.63 mg/3 mL 0.63 mg inhalation Q4-6H PRN 09/27/22 02/05/23 U nknown History solution for nebulization Shortness Of Breath Or Wheezing albuterol sulfate 90 mcg/actuation 2 puff inhalation Q6H PRN 09/27/22 01/30/23 Unknown History aerosol inhaler Shortness Of Breath Or Wheezing blood-glucose meter,continuous 09/27/22 01/28/23 Unknown History (Dexcom G6 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) blood-glucose sensor (Dexcom G6 09/27/22 01/28/23 Unknown History Sensor device) blood-glucose transmitter (Dexcom 09/27/22 01/28/23 Unknown History G6 Transmitter device) insulin lispro 100 unit/mL 1 sliding scale dose subcut 09/27/22 02/05/23 02/02/23 History subcutaneous pen (Humalog KwikPen USEASDIRECTD (U-100) Insulin) meloxicam 15 mg tablet 15 mg PO DAILY 09/27/22 02/05/23 01/29/23 History nitrofurantoin 100 mg PO ONCE 09/27/22 02/05/23 01/05/23 History monohydrate/macrocrystals 100 mg capsule (Macrobid) nystatin 100,000 unit/gram topical 1 appl topical QID PRN Rash 09/27/22 02/05/23 Unknown History powder oxycodone 5 mg capsule 2.5 mg PO Q8H PRN Pain 09/27/22 01/30/23 Unknown History acyclovir 200 mg capsule 200 mg PO TID 10/04/22 02/05/23 02/04/23 History insulin detemir U-100 100 unit/mL 38 unit subcut BID 10/04/22 02/05/23 02/04/23 History (3 mL) subcutaneous pen (Levemir 34 units FlexPen) semaglutide 0.25 mg or 0.5 mg (2 0.25 mg subcut QWEEK 10/04/22 01/30/23 01/29/23 History mg/3 mL) subcutaneous pen injector valacyclovir 1 gram tablet 1,000 mg PO DAILY 01/30/23 01/30/23 02/04/23 History Exam Airway Mallampati Class: IV Neck ROM: Full Loose/Missing/Broken Teeth: Yes Assessment and Plan Assessment Anesthesia Assessment: Anesthesia Plan Discussed Final Anesthetic Review Family History of Problems with Anesthesia: No History of Problems with Anesthesia: Yes (delayed emergence ) NPO: Yes ASA Class: III Final Preanesthetic Review: Meds/Allgs Chart Reviewed, Consent Obtained/Reviewed and Anes Risks/Benef Reviewed Patient Risk: Intermediate Procedure Risk: Intermediate Anesthetic Plan Anesthetic Plan: GA Disposition: Standard PACU
[2023-02-05] VITALS (15 sets, daily range): BP systolic 133–197; BP diastolic 68–99; PULSE 88–101; RESP 14–19; TEMP 36.1–36.6; O2SAT 92–100; BMI 37.4
[2023-02-05 11:35] LABS: UPreg QC Valid YES; Urine Pregnancy NEGATIVE (NEGATIVE)
[2023-02-05] MEDS: Aprepitant 32 MG/4.4 ML VIAL IVPUSH (11:38)
[2023-02-05] MEDS: Lactated Ringers 1,000 ML 999 ML IV (11:38)
[2023-02-05] MEDS: vancomycin HCL 1,500 MG in 0.9 % Sodium Chloride 500 ML 333.33 MG IV (11:39)
[2023-02-05] MEDS: diphenhydrAMINE HCL 50 MG/ML VIAL 6.25 MG IVPUSH (12:38)
--- NOTE | 2023-02-05 12:42 | PM.OP ---
Brief Operative Note Date of Service: 02/05/23 Pre-op diagnosis: Severe obesity with comorbidities (see below) Post-op diagnosis: same Procedure: INITIAL PATIENT BMI ON PRESENTATION AT OUR OFFICE: 41.5 kg/m2 LAST BMI BEFORE SURGERY: 39.2 kg/m2 COMORBIDITIES: asthma, hyperlipidemia, insulin dependent diabetes, psoriatic arthritis, Herpes Zoster, liver fibrosis, left ventricular hypertrophy ?The patient presented to the Weight Management Program with significant obesity that was negatively impacting the patient's comorbidities as listed above.? The program is a phased program with a special focus on preoperative medical weight management to promote substantial weight loss and prepare the patients for the second phase of the program: bariatric surgery. The patient participated in an intensive weekly lifestyle ?intervention and exercise program during which the patient ?has lost between the initial office visit and the last preoperative visit 19lbs, or 9.92% of initial actual body weight. It was deemed appropriate for the patient to now have bariatric surgery. In light of the current Covid-19 pandemic and the well documented strong association of obesity and increased risk of worse outcomes if infected with Covid-19 (REFERENCES:https://pubmed.ncbi.nlm.nih.gov/92712962/,?https://pubmed.ncbi.nlm.nih.gov/81326826/), any delay in undergoing bariatric surgery may lead to the patient's worsening health condition and increased?risk of more severe Covid-19 disease if infected. In addition a recent?study from [facility] published in [facility] on 06/18/2021 ([email or web address]) found that, among patients with obesity, substantial weight loss achieved with surgery was associated with improved outcomes of COVID-19 infection. The findings suggest that obesity can be a modifiable risk factor for the severity of COVID-19 infection. In addition, the patient met the BMI-criteria for bariatric surgery based on the BMI on initial presentation. The patient should not be penalized for achieving such weight loss because ?it is not sustainable long-term without surgical intervention and it was achieved in preparation for bariatric surgery ?under my direction and based on my published research ([email or web address] and?[email or web address].soard.org/article/[email or web address])30230-X/pdf) ?that a 10% preoperative weight loss improves long-term weight loss after surgery and reduces perioperative complications.? Insurance carriers such as [facility] have endorsed my recommendations ?and have included in their policies criteria to include a 10% preoperative weight loss requirement. PROCEDURE: Esophago-gastroscopy, laparoscopic sleeve gastrectomy and laparoscopic gastropexy INDICATIONS: This is a 47 year-old female who was electively scheduled for laparoscopic, possibly open sleeve gastrectomy. The risks and complications of the procedure were discussed with the patient in advance, particularly the possibility of ; pulmonary embolism; staple line leak; bleeding; GERD; cardiac, pulmonary, or renal complications; as well as long-term problems such as insufficient weight loss, vitamin deficiency, strictures, or ulcers. The patient understood all the risks, and was in agreement to proceed with surgery. DESCRIPTION OF PROCEDURE: After informed consent was obtained from the patient, the patient was given preoperative antibiotics, and was transferred to the operating room. After successful induction of general anesthesia, pneumatic compression devices were placed on both lower extremities. An upper endoscopy was performed next. The oropharynx and esophagus appeared to be within normal limits. There was no diaphragmatic hernia present consistent with the findings of the preoperative upper GI. The stomach was entered. Then after all fluid and air were suctioned and the stomach was fully decompressed, the scope was withdrawn and secured in the mid esophagus. The patient was then prepped and draped in the usual sterile manner, and abdominal access was established at the right upper quadrant with the Ragini technique. A 12 mm blunt port was inserted, and the abdomen was insufflated with CO2 to a pressure of 15 mmHg. Under direct visualization, additional ports were placed, specifically two 5 mm Versi-step ports to the left upper quadrant, and a 5 mm Versi-Step port to the right upper quadrant. 1% lidocaine plain was used to infiltrate all port sites as well as all fascia defects. Following that, the patient was placed in a steep reverse Trendelenburg position. An additional 5 mm port was placed to the right flank for the Mediflex retractor that was used to retract the left lobe of the liver. The gastro-esophageal fat pad was opened with the ultrasonic device ([employer], Olympus) and the anterior esophagus and hiatus were exposed. The angle of His was opened with the ultrasonic device the fundus of the stomach from any diaphragmatic and splenic attachments. I then opened the gastrocolic ligament between the transverse colon and the greater curvature of the stomach with the ultrasonic device to enter the lesser sac and facilitate the ligation of the short gastric vessels. I started at a mid-point along the greater curvature and using the Thunderbeat, all short gastric vessels were divided all the way to the angle of His until the left gail was completely dissected at its entirety. I then divided the gastro-colic ligament distally to a distance of about 3-4 cm proximal to the pylorus. The stomach was then divided transversely with two Endo ABDULLAHI-45 purple and four ABDULLAHI-60 articulating purple loads using the abcdexperts stapler and loads. Every effort was made that the gastric sleeve had a tubular shape and an even caliber throughout. Once the sleeve resection was completed, the staple line of the gastric sleeve was reinforced with Hemoclips. The resected stomach was retrieved without difficulty from the Ragini port. A gastropexy was then performed in order to prevent postoperative GERD and partial gastric volvulus. Several interrupted 2.0 Surgidac sutures were placed between the sleeve's staple line and the previously divided greater omentum and gastro-colic ligament using the Endo-Stitch device. ?An upper endoscopy was performed. There was no narrowing at the GE junction. The scope was easily advanced all the way to the pylorus which was clearly visualized. There was no narrowing anywhere and the sleeve's caliber was even throughout. The sleeve's staple line was inspected and there was no evidence of ischemia, bleeding or dehiscence. At that point the gastroscope was withdrawn from the patient?s mouth while we were decompressing the bowel and the stomach from any remaining air. I looked into the lesser sac to see how the sleeve was situating and it was situating well. There was no bleeding from the staple line, spleen, or short gastric vessels. The Mediflex retractor was removed, and the undersurface of the liver was inspected and there was no bleeding. The patient was placed in supine position. I closed the fascial defect of the 12 mm port site with a figure of eight #1 Polysorb suture. Then 30cc Ropivacaine plain with 10 mg of Dexamethasone were used to infiltrate the fascial closure as well as all skin incisions. At this point, the abdomen was deflated, all ports were removed under direct vision, and no bleeding was noted from any of the port sites. The skin incisions were irrigated with saline and were closed with 4-0 absorbable monofilament sutures. Steri-Strips and OpSites were used to cover all incisions. The patient was extubated and was transferred in stable condition to the recovery room for further care. I was present and performed all jaime parts of the procedure. Jaycob was the assistant speech language pathologist. There were no residents to assist with this case. Leeroy Rosario MD, PhD, FACS Surgeon: Lucas Rosario MD Anesthesia: GETA, local and other (TAP block) Was an Clinical Tech used for this Procedure?: No Clinical Tech: Zeinab Devries Estimated blood loss (mL): 10 IV fluids (mL): 3,000 Urine output (mL): 0 (No Gaines to record output) Pathology: other (Stomach) Condition: stable Disposition: PACU
--- NOTE | 2023-02-05 12:45 | PM.PNGS ---
Subjective Subjective Date of Service: 02/06/23 Interval history: Feels well. Mild incisional pain. She is tolerating phase 1 bariatric diet Physical Exam Vital Signs: Vital Signs: Last Vital Signs Temp 96.9 F 02/05/23 10:58 Pulse 88 02/05/23 10:58 Resp 16 02/05/23 10:58 BP 133/68 02/05/23 10:58 Pulse Ox 96 02/05/23 10:58 O2 Del Method Room Air 02/05/23 10:58 BMI result Body Mass Index 37.4 GI: Inspection: Yes normal to inspection, Yes incision (clean, dry and intact) and Yes obesity Extrem: Right lower extremity: normal to inspection (no calf tenderness) Left lower extremity: normal to inspection (no calf tenderness) Objective Data Active Medications Albuterol Sulfate (Albuterol Sulfate (0.083%) 2.5 Mg/3 Ml Vial.Neb) 2.5 mg INHALE ONCE PRN PRN Reason: Shortness of Breath/Wheezing Lactated Ringer's (Lr) 1,000 mls @ 100 mls/hr IVCONT .Q10H HERBER Lactated Ringer's (Lr) 1,000 mls @ 999 mls/hr IV .Q1H1M HERBER Stop: 02/05/23 13:00 Last Admin: 02/05/23 11:38 Dose: 999 mls/hr Documented By: GERALD Pharmacy Consult (Consult Rx Vancomycin Dosing) 1 each MISCELLANE DAILY PRN PRN Reason: Consult order Labs 02/06/23 05:00 02/06/23 05:00 Labs: Laboratory Results - last 24 hr 02/05/23 10:47 Urine Test NEGATIVE Procedures Date of Service Date of Service: 02/06/23 Progress Note: A&P Assessment and plan (1) Obesity: Status: Acute Assessment and Plan: s/p laparoscopic sleeve gastrectomy and gastropexy Doing well Will check am labs and if OK the patient will be discharged home (2) BMI 39.0-39.9,adult: Status: Acute (3) Insulin dependent type 2 diabetes mellitus: Status: Acute (4) GERD (gastroesophageal reflux disease): Status: Acute (5) Complex posttraumatic stress disorder: Status: Acute (6) PCOS (polycystic ovarian syndrome): Status: Acute (7) Asthma: Status: Acute (8) Psoriatic arthritis: Status: Acute (9) Hyperlipidemia: Status: Acute (10) Liver fibrosis: Status: Acute (11) LVH (left ventricular hypertrophy): Status: Acute (12) S/P laparoscopic sleeve gastrectomy: Status: Acute Time Spent With Patient Time: Total time managing care of this patient today ____ minutes. Quality Stroke Does the patient have a stroke diagnosis?: No VTE Prior VTE?: No VTE Risk Level:: Surgical - moderate VTE Device Contraindication: N/A - Device Ordered VTE Drug Contraindication: Treatment Not Indicated
--- NOTE | 2023-02-05 12:48 | PC.NURSE ---
patient c/o uncontrollable itching to the scalp. Vancomycin IV stopped at this time. Dr. Rae at bedside. Benadryl 6.25mg IVP given as ordered. Dr. Rosario aware. no addition antibiotics needed at this time.
[2023-02-05] MEDS: Acetaminophen 1,000 MG/100 ML PIGGYBACK 400 MG IV ×2 (14:00→20:39)
--- NOTE | 2023-02-05 15:12 | PM.DS ---
DS: Providers Provider Date of Service: 02/06/23 Primary care physician: ROBBIE Lopez DS: Diagnosis Discharge Diagnosis (1) Obesity: Status: Acute (2) BMI 39.0-39.9,adult: Status: Acute (3) Insulin dependent type 2 diabetes mellitus: Status: Acute (4) GERD (gastroesophageal reflux disease): Status: Acute (5) Complex posttraumatic stress disorder: Status: Acute (6) PCOS (polycystic ovarian syndrome): Status: Acute (7) Asthma: Status: Acute (8) Psoriatic arthritis: Status: Acute (9) Hyperlipidemia: Status: Acute (10) Liver fibrosis: Status: Acute (11) LVH (left ventricular hypertrophy): Status: Acute (12) S/P laparoscopic sleeve gastrectomy: Status: Acute DS: Summary Hospital Course Hospital Course: ADMITTING DIAGNOSIS: morbid obesity, DM, PCOS, HLD, psoriatic arhtirits, multiple antibiotic allergies DISCHARGE DIAGNOSIS: same, s/p laparoscopic sleeve gastrectomy PAST SURGICAL HISTORY: cholecystectomy, salpigo-oophorectomy PROCEDURE: upper endoscopy, laparoscopic sleeve gastrectomy DISCHARGE SUMMARY: History of Present Illness: The patient is a 47 year-old woman with a BMI of 41.4 kg/m2 and associated co-morbidities as described above. The patient had extensive work-up, lost 14.8lbs preoperatively and was electively scheduled for laparoscopic, possible open sleeve gastrectomy and gastropexy. Risks and complications of the surgery were discussed with the patient in advance, particularly the possibility of , pulmonary embolism, anastomotic leak, bleeding, bowel injury, GERD, cardiac, renal or pulmonary complications. The patient understood all the risks and was in agreement with the surgical plan. Hospital Course: The patient underwent an uneventful laparoscopic sleeve gastrectomy with gastropexy and repair of diaphragmatic hernia on the day of admission. Postoperatively, the patient was transferred to the surgical floor. The patient received IV Acetaminophen and IV dilaudid for pain control. Patient was started on bariatric phase 1 diet POD #0. On postoperative day one, the patient was feeling well without nausea, vomiting, fevers, or tachycardia. The patient had some mild incisional pain and the abdomen was soft. On the morning of postoperative day one, the patient was continued on 1 ounce of water or ice every half hour. During the day, the patient did fairly well, having some incisional pain, but able to ambulate adequately and to tolerate liquids well. Since the patient is doing well, we decided that the patient was ready to be discharged. The patient was given instructions to follow-up with me next week and to call my office for any fever over 101, persistent abdominal pain, nausea, vomiting, GERD, symptoms of DVT such as calf tenderness, or leg swelling, or pulmonary embolism such as chest pain or shortness of breath. The patient was also instructed to drink 40-60 ounces of liquids per day using the 1-ounce cups. The patient had been given prescriptions for Tylenol for pain, Zofran prn for nausea, and pantoprazole and carafate previously. The patient was encouraged to ambulate and use the incentive spirometer. The patient was allowed to shower, but no baths, and encouraged to stay active at home. All of these instructions were given to the patient personally. All questions were answered and the patient understood all instructions, the instructions were also given to the patient in print. Time Spent with Patient Time attestation: Total time managing care of this patient today ____ minutes. Discharge coordination time: Less than 30 minutes Quality: Safe Use of Opioids Does Pt have an Active Cancer Diagnosis on the Problem List?: No Quality: Stroke Does the patient have a stroke diagnosis?: No Physical Exam Vital Signs: Vital Signs: Last Vital Signs Temp 97.8 F 02/05/23 14:56 Pulse 94 02/05/23 15:06 Resp 17 02/05/23 15:06 BP 195/97 H 02/05/23 15:06 Pulse Ox 95 02/05/23 15:06 O2 Del Method Nasal Cannula 02/05/23 15:06 O2 Flow Rate 2 02/05/23 15:06 BMI result Body Mass Index 37.4 DS: Data Data Completed and Pending Pending studies at discharge: Pending at discharge 02/05/23 14:31 Surgical [PTH] Routine Labs on day of discharge: Laboratory Results - last 24 hr 02/05/23 10:47 Urine Test NEGATIVE Discharge Plan Discharge Anticipated Discharge Date/Time: 02/06/23 12:30 Patient Disposition: Home, Self-Care Discharge Diagnosis: s/p sleeve gastrectomy Referrals: Michelle Tristan PA [Primary Care Provider] - 1 Week Discharge Medications: Continued valacyclovir 1 gram tablet 1,000 mg PO DAILY pantoprazole 40 mg tablet,delayed release (DR/EC) 40 mg PO DAILY Qty: 90 2RF sucralfate 100 mg/mL suspension 10 ml PO BID Qty: 400 2RF Patient Comments: post op medication ondansetron 4 mg tablet,disintegrating 4 mg PO Q12H Qty: 20 0RF Patient Comments: post op medication albuterol sulfate 0.63 mg/3 mL solution for nebulization 0.63 mg inhalation Q4-6H PRN (Reason: Shortness Of Breath Or Wheezing) albuterol sulfate 90 mcg/actuation HFA aerosol inhaler 2 puff inhalation Q6H PRN (Reason: Shortness Of Breath Or Wheezing) nystatin 100,000 unit/gram powder 1 appl topical QID PRN (Reason: Rash) Held insulin lispro [Humalog KwikPen Insulin] 100 unit/mL insulin pen 1 sliding scale dose subcut USEASDIRECTD Hold Instructions: discuss dose with Dr Rosario oxycodone 5 mg capsule 2.5 mg PO Q8H PRN (Reason: Pain) Hold Instructions: discuss with Dr Rosario semaglutide 0.25 mg or 0.5 mg (2 mg/3 mL) pen injector 0.25 mg subcut QWEEK Hold Instructions: discuss with Dr Rosario Rx Instructions: for 4 weeks Levemir FlexPen 100 unit/mL (3 mL) insulin pen 38 unit subcut BID Hold Instructions: Resume on 02/07/23. Send your blood sugars to Dr. Rosario daily starting today 02/06/2023. Discontinued phentermine 37.5 mg tablet 37.5 mg PO DAILY Qty: 14 0RF Rx Instructions: must administer 30 minutes before or 1-2 hours after breakfast meloxicam 15 mg tablet 15 mg PO DAILY nitrofurantoin monohyd/m-cryst [Macrobid] 100 mg capsule 100 mg PO ONCE Rx Instructions: must administer with a meal/food FISH OIL 1 dose PO DAILY omeprazole 40 mg capsule,delayed release(DR/EC) 40 mg PO DAILY Qty: 30 2RF ondansetron 4 mg tablet,disintegrating 4 mg PO Q6H PRN (Reason: nausea and vomiting) Qty: 20 0RF Patient Comments: post op medication No Action (DME) blood pressure monitor Kit See Rx Instructions .ROUTE .MEDSUPPLY Qty: 1 0RF Rx Instructions: As directed (DME) Dexcom G6 Certified Histologic Technician Misc See Rx Instructions .Route Rx Instructions: As directed (DME) Dexcom G6 Sensor Device See Rx Instructions .Route Rx Instructions: As directed (DME) Dexcom G6 Transmitter Device See Rx Instructions .Route Rx Instructions: As directed Discharge Orders: Discharge Order (Routine); Ordered 02/06/23 Ordered By: Lucas Rosario Activity on Discharge: No heavy lifting Stand Alone Forms: Patient Portal Discharge page Care Plan Goals: weight loss Health Concerns: obesity Plan of Treatment: No tub baths, sex or returning to work until discussed at first post op appointment. No exercise, alcohol, tobacco or illegal drug use. Continue to use incentive spirometer hourly while awake. Walk in home for 5- 10 minutes every 2 hours during the first week. Continue phase 1 diet today and start phase 2 diet tomorrow morning. Follow all instructions in the bariatric handbook and call with any questions. 1. Please call your doctor or come back to the emergency room should any new symptoms arise. 2. You will receive a courtesy call from [facility] 24-48 hours after discharge. 3. Activity: abstain from alcohol, practice limited stair climbing, no bending, no driving, no exercise, no illicit substances, no lifting, no sex, no tub bath, no work. 4. Diet: continue as discussed with bariatric team.. 5. Dressing Change/Wound Care: Do not change or remove surgical dressings unless they are wet or soiled. 6. Call your doctor if: - Your temperature exceeds 101.5 F - You experience excessive pain or swelling - You have an unexpected reaction to medication - You have excessive bleeding - You experience continued vomiting/nausea - Your incision begins to separate - Your incision shows signs of infection such as increased redness, swelling, excessive pain, heat, or drainage (light blood or clear fluid is normal) 7. General instructions: No lifting greater than 5 lbs for the next 4 weeks[address] driving within 24 hours of taking narcotic pain medications. If you do not move your bowels in the next 2 days, please take milk of magnesia over the counter. Please follow the post op diet and do not advance your diet until you are seen in the office in about 2 weeks. Please walk around your home every hour or two to prevent blood clots from forming in your legs. You do not need to wake from sleeping to walk. Please sleep in a bed or couch to prevent kinking at the hips and knees. Please take your incentive spirometer (your lung music grapher) home with you and use it for the next few days to prevent pneumonias. You may shower, no hot tubs, baths or swimming pools. Please call the office with any questions or concerns such as increasing abdominal pain, fever, chills, shortness of breath, chest pain, leg pain or swelling, or redness or drainage from your incisions. Do not hesitate to contact the office with any questions at . The patient's medical history has been reviewed and they are considered low risk for post op DVT and therefore DVT prophylaxis is not considered necessary. Travel after surgery was reviewed. The patient has not disclosed any travel plans during the first 30 days after surgery and they have been advised that within the first 30 days after surgery any bus, plane, train or car travel over 2 hours in duration is contraindicated due to the possibility of developing blood clots from immobility. Any travel, needs to include periods of ambulation of 10 minutes in duration every 2 hours. The patient was instructed to discuss any plans for travel during this period with their bariatric surgeon. Assessment: stable post op sleeve gastrectomy
[2023-02-05] MEDS: HYDROmorphone HCl 0.5 MG/0.5 ML SYRINGE 0.25 MG IVPUSH ×4 (15:30→15:50)
[2023-02-05] MEDS: Metoclopramide HCl 10 MG/2 ML VIAL IVPUSH (15:34)
[2023-02-05 16:10] LABS: Hematocrit 43.6 % (37.0-47.0); Hemoglobin 15.3 g/dl (12.0-16.0)
[2023-02-05 16:22] LABS: Anion Gap 14 (12-20); Blood Urea Nitrogen 10 mg/dL (9-16); Calcium 8.6 mg/dL (8.4-10.2); Carbon Dioxide 23 mmol/L (22-29); Chloride 107 mmol/L (96-108); Creatinine Clr Calc Pharmacy 104.7; Estimated Glomerular Filt Rate > 60; Glucose Random 212 mg/dL (60-115); Sodium 140 mmol/L (135-145)
[2023-02-05] MEDS: Lactated Ringers 1,000 ML 100 ML IVCONT (16:43)
[2023-02-05] MEDS: 0.9 % Sodium Chloride Flush 3 ML SYRINGE IVFLUSH ×2 (16:43→19:31)
[2023-02-05] MEDS: Famotidine/PF 20 MG/2 ML VIAL IVPUSH ×2 (16:49→20:40)
[2023-02-05 16:50] LABS: Glucose, Whole Blood 227 mg/dL (60-115)
[2023-02-05] MEDS: Insulin Lispro 100 UNIT/ML 3 ML VIAL SUBCUT ×3 (16:55→23:31)
[2023-02-05 19:19] LABS: Glucose, Whole Blood 215 mg/dL (60-115)
[2023-02-05] MEDS: ondansetron HCL 4 MG/2 ML VIAL IVPUSH (19:30)
[2023-02-05 23:17] LABS: Glucose, Whole Blood 205 mg/dL (60-115)
[2023-02-06] MEDS: Lactated Ringers 1,000 ML 100 ML IVCONT (02:28)
[2023-02-06 03:17] VITALS: BP 140/80; PULSE 88; RESP 17; TEMP 36.6; O2SAT 95
[2023-02-06 03:26] LABS: Glucose, Whole Blood 196 mg/dL (60-115)
[2023-02-06] MEDS: Insulin Lispro 100 UNIT/ML 3 ML VIAL SUBCUT ×2 (03:34→07:44)
[2023-02-06 05:45] LABS: MANUAL DIFF FLAG NO
[2023-02-06 05:52] LABS: Basophils Percent Auto 0.1 % (0-2); Hematocrit 43.7 % (37.0-47.0); Imm Gran Abs Auto 0.06 X10*3/uL (0.00-0.03); Imm Gran Pct Auto 0.6 % (0.0-0.4); Lymphocytes Absolute Auto 0.9 X10*3/uL (1.2-4.9); Mean Corpuscular HGB Conc 34.3 g/dl (31.0-35.0); Mean Corpuscular Hemoglobin 28.7 pg (27.0-33.0); Mean Corpuscular Volume 83.6 fL (80.0-98.0); Mean Platelet Volume 9.9 fL (9.4-12.3); Monocytes Absolute Auto 0.3 X10*3/uL (0.1-1.2); Neutrophils Absolute Auto 8.8 x10*3/uL (2.0-8.3); Neutrophils Percent Auto 87.3 % (45-73); Platelet Count 207 X10*3/uL (160-400); Red Blood Count 5.23 X10*6/uL (4.20-5.50); Red Cell Distribution Width 11.9 % (11.0-16.0); White Blood Count 10.1 X10*3/uL (4.8-10.8)
[2023-02-06 06:20] LABS: Anion Gap 15 (12-20); Blood Urea Nitrogen 8 mg/dL (9-16); Carbon Dioxide 24 mmol/L (22-29); Chloride 104 mmol/L (96-108); Creatinine Clr Calc Pharmacy 109.6; Estimated Glomerular Filt Rate > 60; Glucose Random 202 mg/dL (60-115); Potassium 4.2 mmol/L (3.3-5.1); Sodium 139 mmol/L (135-145)
[2023-02-06 07:17] VITALS: BP 147/68; PULSE 86; RESP 18; TEMP 36.1; O2SAT 95
[2023-02-06 07:31] LABS: Glucose, Whole Blood 189 mg/dL (60-115)
[2023-02-06] MEDS: Famotidine/PF 20 MG/2 ML VIAL IVPUSH (07:41)
[2023-02-06 08:04] LABS: Glucose, Whole Blood 136 mg/dL (60-115)
--- NOTE | 2023-02-06 08:35 | PHA.MEDREC ---
Pharmacy Consult ? Medication Reconciliation Pharmacy has completed the medication reconciliation.
--- NOTE | 2023-02-06 10:04 | HO.POSTANES ---
Post Anesthesia Evaluation Post Anesthesia Evaluation Date of Service: 02/05/23 Vital Signs: Vital Signs Temp Pulse Resp BP Pulse Ox O2 Del Method O2 Flow Rate 02/06/23 07:17 96.9 F 86 18 147/68 H 95 Nasal Cannula 4 02/06/23 03:17 98 F 88 17 140/80 H 95 Room Air 02/05/23 23:10 98 F 98 17 135/70 92 Room Air Anesthesia: General Endotracheal-GETA Mental Status: Awake Pain Control: Satisfactory Nausea/Vomiting: None Hydration: Adequate Anesthesia-Related Issues: No Anes. Related Issues
== END 2023-02-06 12:34 | disposition home or self-care (01) | DRG 403 ==
PROVIDERS: Nurse Practitioner; Physician Assistant; Admitting Provider Surgery; PCP Physician Assistant; Visit Provider Surgery
PROC: 0DB64Z3 Excision of Stomach, Percutaneous Endoscopic Approach, Vertical (ICD-10-PCS; CPT 43845; principal; 2023-02-05 12:50)
DX: E66.01 Morbid (severe) obesity due to excess calories (principal); L40.50 Arthropathic psoriasis, unspecified; K74.00 Hepatic fibrosis, unspecified; J45.909 Unspecified asthma, uncomplicated; B02.9 Zoster without complications; E28.2 Polycystic ovarian syndrome; I51.7 Cardiomegaly; Z68.39 Body mass index [BMI] 39.0-39.9, adult; F43.10 Post-traumatic stress disorder, unspecified; E78.5 Hyperlipidemia, unspecified; Z87.891 Personal history of nicotine dependence; Z79.4 Long term (current) use of insulin; Z79.85 Long-term (current) use of injectable non-insulin antidiabetic drugs; Z79.899 Other long term (current) drug therapy
CPT/HCPCS: 36415; 80048; 81025; 82947; 85014; 85018; 85025; 86850; 86900; 86901; 88305; 88307; 88342; A4649; C9145; J0131; J1100; J1170; J1200; J2250; J2371; J2405; J2765; J2795; J3010; J3371

== ENCOUNTER 2023-02-11 13:20 | Outpatient (AMB) | payer OTHER, SELFPAY ==
--- NOTE | 2023-02-11 13:54 | MHC.OFFVISWM ---
Intake VS Expanded 02/11/23 14:09 Height 5 ft 1 in Weight 192 lb 6.4 oz BMI 36.3 BP 148/67 H Blood Pressure Location Rt brachial Blood Pressure Position Sitting Pulse 88 Pulse Source Pulse Oximeter Temp 96.2 F L Temperature Source Tympanic Pulse Oximetry 95 Oxygen Delivery Method Room Air Body Fat 98.6 Body Fat Percentage 51.3 Free Fat Mass 93.6 Muscle Mass 88.8 Visceral Mass 13.0 Water Mass 66.8 BMR 1,370 Intake Visit Reasons: (OV) 6 Days PO LSG 02/05/23 Allergies clavulanic acid [From Augmentin] Allergy (Severe, Verified 02/11/23 13:57) felt like I was having a heart attack lobster Allergy (Severe, Verified 02/11/23 13:57) Anaphylaxis shrimp Allergy (Severe, Verified 02/11/23 13:57) Anaphylaxis vancomycin Allergy (Verified 02/11/23 13:57) Hives ERYTHROMYCIN Allergy (Severe, Uncoded 02/11/23 13:57) Anaphylaxis MORPHINE Allergy (Severe, Uncoded 02/11/23 13:57) Hives, rash, diaphoresis, N/V QUINOLONE ANTIBIOTICS Allergy (Severe, Uncoded 02/11/23 13:57) Hives, rash, N/V ANTIBIOTICS Allergy (Unknown, Uncoded 02/11/23 13:57) Unknown HPI HPI Comments History of Present Illness Details 47 yo female POD 6 s/p LSG on 02/05/[address] Rosario Reports diarrhea for the last 2 days. She also noted hyperglycemia right after the sucralfate. 170 increase to 215. Currently taking 15 u Levemir Did not tolerate celebrate and is now doing 3 isopure 1 scoop each in unsweetened almond milk meggan 34 oz water Has been communicating daily w Dr John MENDOZA Medical History (Updated 02/08/23 @ 00:02 by Background Frank) Asthma BMI 39.0-39.9,adult Complex posttraumatic stress disorder Diabetes Endometriosis Hyperlipidemia Morbid obesity PCOS (polycystic ovarian syndrome) PONV (postoperative nausea and vomiting) Psoriatic arthritis Shingles UTI (urinary tract infection) Surgical History (Updated 02/11/23 @ 14:[address] [facility]) Hx of cholecystectomy Hx of colonoscopy Hx of cystoscopy Hx of laparoscopic partial gastrectomy Hx of unilateral oophorectomy Hx of unilateral salpingectomy Hx of wisdom tooth extraction Family History Mother No problems noted. Father Hypertension Sister No problems noted. Brother Hypertension Brother No problems noted. Social History Household Members: Significant Other Housing: House Are you a primary palliative care specialist to a significant other at home: Yes (3 children) Do you presently have visiting nurse or other home services: No Alcohol intake: never Patient Tobacco Use Status: Former Tobacco user Quit Date: 2005 Tobacco use type: Cigarette Substance Use Type: Marijuana Physical Exam Vital Signs: Last Vital Signs Temp 96.2 F L 02/11/23 14:09 Pulse 88 02/11/23 14:09 BP 148/67 H 02/11/23 14:09 Pulse Ox 95 02/11/23 14:09 Oxygen Delivery Method Room Air 02/11/23 14:09 BMI result Body Mass Index 36.3 GI Inspection: Yes incision (c/d/i) Assessment & Plan Assessment & Plan (1) S/P laparoscopic sleeve gastrectomy: Code(s): Z98.84 - Bariatric surgery status Plan: POD 6 s/p LSG on 02/05/[address] Rosario Weight loss prior to surgery was 16.3 pounds or 7.4% TBWL. Original weight on 10/04/22 was 219.8 pounds and op weight was 203.5 pounds. Be sure to text Dr Rosario exactly 1 week after surgery your weight from your home scale so he can adjust your meal plan. Continue meal plan until f/u w [facility] in 3 weeks May shower, no submersion in bath for another week Continue abdominal binder with activity and exercise for the next 2 weeks. Exercise prior to surgery was walking, may resume tomorrow No abdominal exercises for 6 weeks post operatively Will be emailed link to post op video for review Reminded of the pace of drinking, 2 mL per minute, 1 oz/15 min. Re:diarrhea, possibly sucralfate or pantoprazole. Discussed changing to carafate tabs to address elevated bloodsugars. Consider pantoprazole as etiology if no improvement with tabs of carafate as she has tolerated this in the past. Gastroenteritis also within the differential. Encouraged to increase water. She states she will discuss w Dr Nehemiah adams. She will also need MVI supplemetn. Coding Level of Care Code Global (77909) Diagnoses S/P laparoscopic sleeve gastrectomy Z98.84
[2023-02-11 14:09] VITALS: BP 148/67; PULSE 88; TEMP 35.7; O2SAT 95; BMI 36.3
== END 2023-02-11 15:08 | disposition home or self-care (01) ==
PROVIDERS: PCP Physician Assistant; Visit Provider Physician Assistant Surgical
DX: E66.9 Obesity, unspecified (principal); Z68.36 Body mass index [BMI] 36.0-36.9, adult; Z90.3 Acquired absence of stomach [part of]; Z98.84 Bariatric surgery status
CPT/HCPCS: 99024

== ENCOUNTER → 2023-02-11 13:20 | Outpatient (BNVA) | payer OTHER, SELFPAY | PROVIDERS: PCP Physician Assistant; Visit Provider Physician Assistant Surgical ==

== ENCOUNTER 2023-03-03 12:06 | Outpatient (AMB) | payer OTHER, SELFPAY ==
--- NOTE | 2023-03-03 12:15 | A.OFFVIS_ITS ---
Intake VS Expanded 03/03/23 12:23 Height 5 ft 1 in Weight 193 lb BMI 36.5 BP 149/66 H Blood Pressure Location Rt brachial Blood Pressure Position Sitting Pulse 93 Pulse Source Pulse Oximeter Temp 96.4 F L Temperature Source Tympanic Pulse Oximetry 95 Oxygen Delivery Method Room Air Body Fat 92.8 Body Fat Percentage 48.1 Free Fat Mass 100.0 Muscle Mass 95.0 Visceral Mass 13.0 Water Mass 71.4 BMR 1,434 Intake Visit Reasons: (OV) 27 Days PO LSG 02/05/23 Waste Management Recycling Technician Required: No Allergies clavulanic acid [From Augmentin] Allergy (Severe, Verified 03/03/23 12:22) felt like I was having a heart attack lobster Allergy (Severe, Verified 03/03/23 12:22) Anaphylaxis shrimp Allergy (Severe, Verified 03/03/23 12:22) Anaphylaxis vancomycin Allergy (Verified 03/03/23 12:22) Hives ERYTHROMYCIN Allergy (Severe, Uncoded 03/03/23 12:22) Anaphylaxis MORPHINE Allergy (Severe, Uncoded 03/03/23 12:22) Hives, rash, diaphoresis, N/V QUINOLONE ANTIBIOTICS Allergy (Severe, Uncoded 03/03/23 12:22) Hives, rash, N/V ANTIBIOTICS Allergy (Unknown, Uncoded 03/03/23 12:22) Unknown Medication List - Last Reconciled 03/03/23 by ROBBIE Olivier albuterol sulfate 0.63 mg inhalation Q4-6H PRN albuterol sulfate 90 mcg/actuation 2 puffs inhalation Q6H PRN blood pressure monitor As directed blood-glucose meter,continuous (Dexcom G6 Carriage Setter) As directed blood-glucose sensor (Dexcom G6 Sensor device) As directed blood-glucose transmitter (Dexcom G6 Transmitter device) As directed insulin detemir U-100 (Levemir FlexPen) 38 units subcut DAILY insulin detemir U-100 (Levemir FlexPen) 18 units subcut BEDTIME insulin lispro (Humalog KwikPen (U-100) Insulin) 1 sliding scale dose subcut QIDACHS nystatin 1 appl topical QID PRN oxycodone 2.5 mg PO Q8H PRN pantoprazole 40 mg PO DAILY semaglutide 0.5 mg subcut NASCIMENTO@0900 sucralfate 10 mL PO BID valacyclovir 1,000 mg PO BEDTIME HPI HPI Comments History of Present Illness Details This?a?47?yo female who is s/p LSG without hiatal hernia repair on?02/05/23. Presents for 1 month post op visit. Weight today is 193 pounds, with a BMI of 36.5. There has been a 26.8 pound weight loss,(initial weight 219.8 pounds) since starting the program on 10/04/22 reflecting a 12.1% total body weight loss and a weight loss of 10.5 pounds since surgery (operative weight 203.5 pounds) reflecting a 5.1% TBWL since surgery. No complaints of nausea, emesis, abdominal pain or reflux. Reports constipation now, last BM 4 days ago. She has tried to increase water. No fiber supplement. She previously was using fiber supplement, but none recently. She has also been on BID insulin 18 u down slightly from 20 bid. Her briar wood sorter wants to change to Ame to help with weight loss and to help with glycemic control. Pt reports sugars average 160-180, improving. She also reports intermittent episodes of feeling lightheaded. This occurs without position change or water intake or time of day. It seems to occur after being up and active for 30 min. She states she has had BP check at home and BS check and neither were significantly abnormal. She reports she has had episodes of this in the past, prior to surgery, but not as frequently. She also reports feelings of hunger and growling stomach. She has had cardiac w/u in the past x 1 at [facility] for questionable EKG and no further w/u was indicated. She also had w/u here preoperatively and no further w/u was recommended. She is willing to f/u with cardiology here for possible holter monitor. 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 Drinking 40-60 oz fluids in addition to shakes Exercise routine includes: stationary bike 1-2 miles, feelings of lightheadedness after 30 min walking 2 miles [facility] Medical History (Updated 03/03/23 @ 13:12 by ROBBIE Olivier) Diabetes PONV (postoperative nausea and vomiting) BMI 39.0-39.9,adult Complex posttraumatic stress disorder Endometriosis PCOS (polycystic ovarian syndrome) UTI (urinary tract infection) Shingles Asthma Psoriatic arthritis Hyperlipidemia Morbid obesity Surgical History Hx of laparoscopic partial gastrectomy Hx of cystoscopy Hx of colonoscopy Hx of wisdom tooth extraction Hx of cholecystectomy Hx of unilateral salpingectomy Hx of unilateral oophorectomy Family History Mother No problems noted. Father Hypertension Sister No problems noted. Brother Hypertension Brother No problems noted. Social History Household Members: Significant Other Housing: House Are you a primary manager critical care unit to a significant other at home: Yes (3 children) Do you presently have visiting nurse or other home services: No Alcohol intake: never Patient Tobacco Use Status: Former Tobacco user Quit Date: 2005 Tobacco use type: Cigarette Substance Use Type: Marijuana Physical Exam GI Inspection: Yes incision (all healing well) Assessment & Plan Assessment & Plan (1) S/P laparoscopic sleeve gastrectomy: Code(s): Z98.84 - Bariatric surgery status Plan: will continue meal plan for now as outlined by Dr John lee/pauline Arriola in 2 weeks (2) Constipation: Code(s): K59.00 - Constipation, unspecified Plan: May add Metamucil to shake, add colace 100-200 mg po daily Dulcolax NJ x 1 for acute issue (3) Lightheadedness: Code(s): R42 - Dizziness and giddiness Plan: Unclear etiology, likely rhythm as glucose not the issue as she has dexacom monitor She has also checked her BP while having an episode and it was not low. Encouraged her to check her pulse to at least determine if any irregularity. This may be a SVT or irreg rhythm with activity. Consult cardiology Orders: Referrals Cardiology Referral R42 - Dizziness and giddiness Medications: New bisacodyl (Dulcolax (bisacodyl)) 10 mg [place] DAILY PRN 12 ea 0RF constipation docusate sodium (Colace) 100 mg PO DAILY 90 caps 2RF 90 days Coding Level of Care Code Global (34391) Diagnoses S/P laparoscopic sleeve gastrectomy Z98.84 Constipation K59.00 Lightheadedness R42
[2023-03-03 12:23] VITALS: BP 149/66; PULSE 93; TEMP 35.8; O2SAT 95; BMI 36.5
== END 2023-03-03 13:17 | disposition home or self-care (01) ==
PROVIDERS: PCP Physician Assistant; Visit Provider Physician Assistant Surgical
DX: E66.9 Obesity, unspecified (principal); Z68.36 Body mass index [BMI] 36.0-36.9, adult; Z90.3 Acquired absence of stomach [part of]; Z98.84 Bariatric surgery status
CPT/HCPCS: 99024

== ENCOUNTER → 2023-03-03 12:06 | Outpatient (BNVA) | payer OTHER, SELFPAY | PROVIDERS: PCP Physician Assistant; Visit Provider Physician Assistant Surgical ==

== ENCOUNTER 2023-03-28 08:48 | Outpatient (AMB) | payer OTHER, SELFPAY ==
--- NOTE | 2023-03-28 08:54 | MHC.OFFVISWM ---
Intake VS Expanded 03/28/23 09:03 BP 143/63 H Blood Pressure Location Rt brachial Blood Pressure Position Sitting Pulse 84 Pulse Source Pulse Oximeter Temp 97.2 F Temperature Source Temporal Artery Scan Pulse Oximetry 96 Oxygen Delivery Method Room Air Height 5 ft 1 in Weight 186 lb 9.6 oz BMI 35.3 Body Fat % 48.5 Body Fat Mass 90.4 Fat Free Mass 96.2 Visceral Fat Rating 12.0 Body Water % 36.6 Body Water Mass 68.4 Muscle Mass/Score 91.2 Basal Metabolic Rate/Score 1,384 Intake Visit Reasons: (OV) PO LSG 02/05/23 Allergies clavulanic acid [From Augmentin] Allergy (Severe, Verified 03/28/23 09:00) felt like I was having a heart attack lobster Allergy (Severe, Verified 03/28/23 09:00) Anaphylaxis shrimp Allergy (Severe, Verified 03/28/23 09:00) Anaphylaxis vancomycin Allergy (Verified 03/28/23 09:00) Hives ERYTHROMYCIN Allergy (Severe, Uncoded 03/28/23 09:00) Anaphylaxis MORPHINE Allergy (Severe, Uncoded 03/28/23 09:00) Hives, rash, diaphoresis, N/V QUINOLONE ANTIBIOTICS Allergy (Severe, Uncoded 03/28/23 09:00) Hives, rash, N/V ANTIBIOTICS Allergy (Unknown, Uncoded 03/28/23 09:00) Unknown Medication List - Last Reconciled 03/28/23 by Zeinab Devries PA-C albuterol sulfate 0.63 mg inhalation Q4-6H PRN albuterol sulfate 90 mcg/actuation 2 puffs inhalation Q6H PRN bisacodyl (Dulcolax (bisacodyl)) 10 mg OR DAILY PRN blood pressure monitor As directed blood-glucose meter,continuous (Dexcom G6 [employer]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) As directed blood-glucose sensor (Dexcom G6 Sensor device) As directed blood-glucose transmitter (Dexcom G6 Transmitter device) As directed docusate sodium (Colace) 100 mg PO DAILY 90 days insulin detemir U-100 (Levemir FlexPen) 38 units subcut DAILY insulin detemir U-100 (Levemir FlexPen) 18 units subcut BEDTIME insulin lispro (Humalog KwikPen (U-100) Insulin) 1 sliding scale dose subcut QIDACHS nystatin 1 appl topical QID PRN oxycodone 2.5 mg PO Q8H PRN pantoprazole 40 mg PO DAILY sucralfate 10 mL PO BID valacyclovir 1,000 mg PO BEDTIME HPI HPI Comments History of Present Illness Details 47 yo type 1-2 DM now 6 weeks s/p LSG, no nausea emesis or abd pain except for jeff week when had viral illness now resolved. Levemir insulin - 18 U in am and 18 U in pm. Has GCM. Wakes up at 6:30 - 8:30 am 9am - 1/2 scoop Celebrate 4:1 or Isopure with 8 oz UAM - over 1- 1.5 hours. 2pm- same shake - ocassional 1 oz decaf 4-6pm - half bar 6:45 pm - 2 forks of lean protein with 2 forks cooked vegetables BS - fastings 100 - 120, during the 175 Exercise - due to her autoimmume arthritis, wants to start her on a new med Taltz - will start in about 4 weeks. Recumbent bike x 5 - qid. Can walk 1 mile She has only lost 8 lbs since 02/05/23. [facility] Medical History (Updated 03/28/23 @ 09:54 by Zeinab Devries PA-C) Diabetes PONV (postoperative nausea and vomiting) BMI 39.0-39.9,adult Complex posttraumatic stress disorder Endometriosis PCOS (polycystic ovarian syndrome) UTI (urinary tract infection) Shingles Asthma Psoriatic arthritis Hyperlipidemia Morbid obesity Surgical History Hx of laparoscopic partial gastrectomy Hx of cystoscopy Hx of colonoscopy Hx of wisdom tooth extraction Hx of cholecystectomy Hx of unilateral salpingectomy Hx of unilateral oophorectomy Family History Mother No problems noted. Father Hypertension Sister No problems noted. Brother Hypertension Brother No problems noted. 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) Do you presently have visiting nurse or other home services: No Alcohol intake: never Patient Tobacco Use Status: Former Tobacco user Quit Date: 2005 Tobacco use type: Cigarette Substance Use Type: Marijuana Physical Exam Vital Signs: Last Vital Signs Temp 97.2 F 03/28/23 09:03 Pulse 84 03/28/23 09:03 BP 143/63 H 03/28/23 09:03 Pulse Ox 96 03/28/23 09:03 Oxygen Delivery Method Room Air 03/28/23 09:03 BMI result Body Mass Index 35.3 Assessment & Plan Assessment & Plan (1) S/P laparoscopic sleeve gastrectomy: Code(s): Z98.84 - Bariatric surgery status Plan: Pt with minimal weight loss since surgery 6-7 weeks ago and inadequate nutrional plan - 34 grams of protein only, less than 500 calories per day with elevated BS's. Meal plan - patient is open to any changes that will help her 9am- 4:1 2 scoops with 8 oz UAM - over 2 hours' 1pm- same shake 3:30 - half bar - over 1 hour 7pm - 2 oz lean protein and 1 oz cooked vegetable Start LS 1 mile videos every other day for now - pre or post medicate as needed. Pt will text me in 4 d with 1. weight 2. BS's 3. meal plan tolerance 4. exercise tolerance Next office appt with me in 4 weeks, will continue close monitoring via phone communication. 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 (3) Arthritis: Code(s): M19.90 - Unspecified osteoarthritis, unspecified site Plan: see above Coding Level of Care Code Global (78659) Diagnoses S/P laparoscopic sleeve gastrectomy Z98.84 Insulin dependent type 2 diabetes mellitus E11.9; Z79.4 Arthritis M19.90
[2023-03-28 09:03] VITALS: BP 143/63; PULSE 84; TEMP 36.2; O2SAT 96; BMI 35.3
== END 2023-03-28 09:55 | disposition home or self-care (01) ==
PROVIDERS: PCP Physician Assistant; Visit Provider Physician Assistant
DX: Z98.84 Bariatric surgery status (principal); E11.9 Type 2 diabetes mellitus without complications; Z79.4 Long term (current) use of insulin; M19.90 Unspecified osteoarthritis, unspecified site
CPT/HCPCS: 99024

== ENCOUNTER → 2023-03-28 08:48 | Outpatient (BNVA) | payer OTHER, SELFPAY | PROVIDERS: PCP Physician Assistant; Visit Provider Physician Assistant ==